=== PATIENT | male | born 1985 | race Caucasian/White ===

== ENCOUNTER 2021-02-17 14:00 | Outpatient (RCR) | payer BC, SELFPAY ==
[2020-12-16 09:42] VITALS: BMI 39.8
[2020-12-16 09:44] VITALS: BMI 39.8
[2021-02-17 14:04] VITALS: BMI 39.8
[2021-02-17 14:26] VITALS: BMI 38.0
== END 2021-03-02 14:35 | disposition home or self-care (01) ==
LOC: ANHDMC 14:00
DX: E11.65 Type 2 diabetes mellitus with hyperglycemia (principal); E66.01 Morbid (severe) obesity due to excess calories; Z71.3 Dietary counseling and surveillance
CPT/HCPCS: 97802; 97803

== ENCOUNTER 2021-06-24 12:04 | Emergency (ER) | payer BC, SELFPAY ==
[2021-06-24 12:16] VITALS: BP 144/93; PULSE 106; RESP 18; TEMP 36.5; O2SAT 98
--- NOTE | 2021-06-24 12:23 | ED.SKABFB ---
HPI - Skin/Abscess/Foreign Bdy General Chief complaint: Skin/Abscess/Foreign Body Stated complaint: Insect Bite Time Seen by Provider: 06/24/21 12:20 Source: patient, RN notes reviewed and old records reviewed Mode of arrival: ambulatory Limitations: no limitations History of Present Illness HPI narrative: 36 year old male presents to express care with complaints of insect bite/sting to his left buttock which happened about 40 minutes prior to arrival.Patient states that he was cutting weeds along the fence in his father's yard. Patient states that initially area was very painful and pain has decreased, he voices concern over possible allergic reaction due to sting and the fact that he is diabetic and concern of possible infection to area. 2cm raised erythema area noted to left buttock with no induration or acute warmth with patient having no difficulty with his breathing or swallowing difficulty. MD complaint: insect bite/sting Related Data Home Medications Medication Instructions Recorded Confirmed atorvastatin 20 mg PO DAILY 06/24/21 06/24/21 dulaglutide [Trulicity] 3 mg SUBCUT WEEKLY 06/24/21 06/24/21 lisinopril 10 mg PO DAILY 06/24/21 06/24/21 metformin 850 mg PO BID 06/24/21 06/24/21 sertraline 25 mg PO DAILY 06/24/21 06/24/21 sertraline 50 mg PO HS 06/24/21 06/24/21 Allergies Allergy/AdvReac Type Severity Reaction Status Date / Time No Known Allergies Allergy Verified 06/24/21 12:30 Review of Systems Review of Systems: CONSTITUTIONAL: Denies fever, chills, or sweats. EYES: Denies visual changes, redness, or discharge. ENT: Denies rhinorrhea, congestion, sore throat, or otalgia. CARDIOVASCULAR: Denies chest pain, palpitations, or edema. RESPIRATORY: Denies cough or dyspnea. GASTROINTESTINAL: Denies abdominal pain, nausea, vomiting, or diarrhea. GENITOURINARY: Denies dysuria or hematuria. SKIN: Positive for insect bite to left buttock prior to arrival with some redness and minimal raised tissue area. MUSCULOSKELETAL: Denies back pain, joint pain, or myalgia. NEUROLOGIC: Denies headache, numbness, or weakness. PSYCHIATRIC: Positive for history anxiety or depression. All systems reviewed & are unremarkable except as noted in HPI and below PMFSH Past Medical History Medical History (Updated 06/25/21 @ 00:01 by Randa Matson) Anxiety and depression Diabetes type 2, controlled Hyperlipidemia Hypertension Obesity Surgical History Surgical History (Updated 06/24/21 @ 12:27 by Ita Graff NP) History of tonsillectomy Family History Family History (Updated 06/24/21 @ 12:55 by Ita Graff NP) Father Hypertension Mother Hypertension Grandparent Pancreatic cancer Sibling Diabetes mellitus Social History Social History (Updated 06/24/21 @ 12:54 by Ita Graff NP) Smoking status: Never smoker Alcohol intake: current Alcohol use details: social Substance use: never Living arrangements: with family Gender identity (if verbalized by the patient): Male Spiritual care concerns: No Comments At time of signature, agree with nursing past medical, surgical, social and family history. There is no relevant family history pertinent to the presenting complaint Exam Narrative: GENERAL: Well-appearing, well-nourished, obese and in no acute distress. HEAD: Normocephalic, atraumatic. EYES: PERRLA and EOMI. ENT: Nares clear, no rhinorrhea or epistaxis. Mucous membranes moist.TM's normal with good light reflex, throat pink with no swelling,exudates, or lesion, tonsils absent. NECK: Supple. no lymphadenopathy CHEST: Clear to auscultation. No respiratory distress.SAO2 98% on room air HEART: Regular rate and rhythm. No murmur heard. Normal peripheral pulses. ABDOMEN: Soft, nontender, nondistended, normal active bowel sounds. EXTREMITIES: Normal range of motion. No edema. SKIN: Warm, dry, 2cm red minimally raised area on left buttock where patient was bit by an insect of some kin
== END 2021-06-24 12:40 | disposition home or self-care (01) ==
PROVIDERS: Emergency Provider Registered Nurse
DX: S30.860A Insect bite (nonvenomous) of lower back and pelvis, initial encounter (principal); W57.XXXA Bitten or stung by nonvenomous insect and other nonvenomous arthropods, initial encounter; E11.9 Type 2 diabetes mellitus without complications; E78.5 Hyperlipidemia, unspecified; I10 Essential (primary) hypertension; E66.9 Obesity, unspecified; Z68.41 Body mass index [BMI] 40.0-44.9, adult
CPT/HCPCS: 99213; G0463